=== PATIENT | female | born 2000 | race African-American/Black ===

== ENCOUNTER 2023-01-02 23:29 | Outpatient (CLI) | payer MEDICAID, SELFPAY | END 2023-01-02 23:30 | disposition home or self-care (01) | LOC: AMB 01-29 16:39 | PROVIDERS: Visit Provider Family Medicine | DX: J95.830 Postprocedural hemorrhage of a respiratory system organ or structure following a respiratory system procedure (principal) | CPT/HCPCS: A0425; A0428 ==